=== PATIENT | female | born 1975 | race Caucasian/White ===

== ENCOUNTER 2017-03-07 17:43 | Emergency (ER) | payer OTHER ==
[~2017-03-07] VITALS: Ht 149.9 cm; Wt 61.3 kg
[2017-03-07 18:26] LABS: BLOOD UREA NITROGEN 10 mg/dL (7-18)
[2017-03-07] MEDS ORDERED: METOCLOPRAMIDE 5 MG/ML, 2ML ONE (18:30)
[2017-03-07] MEDS ORDERED: DIPHENHYDRAMINE 50 MG/ML, 1ML ONE (18:30)
[2017-03-07] MEDS ORDERED: SODIUM CHLORIDE FLUSH 10ML SYR IVF ONE (18:30)
[2017-03-07] MEDS ORDERED: METOCLOPRAMIDE 5 MG/ML, 2ML IVPush ONE (18:30)
[2017-03-07] MEDS ORDERED: SODIUM CHLORIDE 0.9% 1,000ML IVBOLUS ONE (18:30)
[2017-03-07] MEDS ORDERED: KETOROLAC 30 MG/1 ML IVPush ONE (18:30)
[2017-03-07] MEDS ORDERED: KETOROLAC 30 MG/1 ML ONE (18:30)
[2017-03-07] MEDS ORDERED: DIPHENHYDRAMINE 50 MG/ML, 1ML IVPush ONE (18:30)
[2017-03-07] MEDS ORDERED: OMNIPAQUE 350 MG/ML, 100ML BOTTLE ONE (19:55)
[2017-03-07 20:45] VITALS: BP 112/75
== END 2017-03-07 21:44 | disposition home or self-care (01) ==
LOC: ED 20:10
DX: L03.211 Cellulitis of face (principal)
CPT/HCPCS: 36415; 70450; 70491; 80048; 82040; 85025; 93005; 96361; 96374; 96375; 99285; J1200; J1885; J2765; J7030; Q9967

== ENCOUNTER → 2018-09-21 | Outpatient (CLI) | payer OTHER | END | disposition home or self-care (01) | LOC: CFH 12:14 | PROVIDERS: ATTEND Obstetrics & Gynecology | DX: N64.4 Mastodynia (principal) | CPT/HCPCS: 76641; 77066; G0279 ==

== ENCOUNTER → 2020-10-14 | Outpatient (CLI) | payer OTHER | END | disposition home or self-care (01) | LOC: CFH 13:10 | PROVIDERS: ATTEND Obstetrics & Gynecology | DX: N64.4 Mastodynia (principal) | CPT/HCPCS: 77062; 77066; G0279 ==